=== PATIENT | female | born 1985 | race African-American/Black ===

== ENCOUNTER 2016-06-02 12:45 | Day surgery (SDC) | payer MEDICAID, OTHER ==
[~2016-06-02] VITALS: Ht 152.4 cm; Wt 52.0 kg
[2016-06-02] VITALS (8 sets, daily range): BP systolic 82–130; BP diastolic 53–67; PULSE 56–72; RESP 11–20; Ht 152.4 cm; Wt 52.0 kg
[~2016-06-02 12:45] MED LIST: CEFAZOLIN 2 GM/50 ML (PMX) 50 ML IVPB ONE; HYDR-3498 PO; SOD CHLORIDE 0.9% 1,000 ML IV SCH
[2016-06-02] MEDS ORDERED: CEFAZOLIN 2 GM/50 ML (PMX) 50 ML IVPB ONE (15:00)
[2016-06-02] MEDS ORDERED: SOD CHLORIDE 0.9% 1,000 ML IV SCH (15:00)
[2016-06-02] MEDS ORDERED: BUPIVACAINE 0.25% (MPF) 30 ML INJ ONE (15:01)
[2016-06-02] MEDS ORDERED: TRIAMCINOLONE ACET 40 MG/ML INJ ONE (15:25)
[2016-06-02] MEDS ORDERED: FENTAnyl 50 MCG/ML VIAL IV PRN (15:30)
[2016-06-02] MEDS ORDERED: ONDANSETRON 4 MG INJ IV PRN (15:30)
[2016-06-02] MEDS ORDERED: MEPERIDINE 25 MG INJ IV PRN (15:30)
[2016-06-02] MEDS ORDERED: morphine (1 MG/ML) 10ML SYRINGE IV PRN (15:30)
[2016-06-02] MEDS ORDERED: DIPHENHYDRAMINE 50 MG INJ IV PRN (15:30)
[2016-06-02] MEDS ORDERED: MIDAZOLAM 1 MG/ML 2 ML INJ ONE (15:36)
[2016-06-02] MEDS ORDERED: FENTAnyl 50 MCG/ML VIAL ONE (15:37)
[2016-06-02] MEDS ORDERED: LIDOCAINE 2% (SDV) 5 ML INJ ONE (16:15)
[2016-06-02] MEDS ORDERED: CEFAZOLIN 1 GM INJ ONE (16:15)
[2016-06-02] MEDS ORDERED: PROPOFOL 20 ML ONE (16:15)
[2016-06-02] MEDS ORDERED: HYDROCODONE/APAP (5/325) TAB PO ONE (16:30)
--- NOTE | 2016-06-02 16:51 | OPR ---
DATE OF OPERATION: 06/02/2016 INDICATION: This is a 31-year-old female with a nipple areolar mass. She requests surgical excisio n and reconstruction. Risks, alternatives, benefits, and personnel were discussed with the patient. The patient expressed understanding and consents to the operation. PREOPERATIVE DIAGNOSIS: Nipple areolar mass. POSTOPERATIVE DIAGNOSIS: Nipple areolar mass. OPERATION PERFORMED: 1. Excision of nipple areolar mass with 3 x 2 cm size incision and 3 x 2 cm size lesion. 2. Nipple areolar reconstruction, CPT code 29015. SURGEON: Renan Patel MD SPECIMEN: Left nipple areolar mass. COMPLICATIONS: None. ANESTHESIA: General. DESCRIPTION OF PROCEDURE: The patient was taken to the OR and prepped and draped in usual sterile f ashion. Surgical timeout was performed. IV antibiotics were given. Incision was made in the left upper quadrant of the right nipple and areolar with a 15 blade excising the mass. Due to the nipple areolar defect nipple areolar reconstruction was performed by first creating superior and inferior skin flaps and these were advanced with interrupted 3-0 Vicryl. The nipple mound was maintained and made protuberant with imbricated interrupted 3-0 Vicryls. The excess skin at the edge of the areol ar was also closed with multiple imbrications of interrupted 3-0 Vicryl. The skin was then also maximino sed with a running 4-0 Monocryl. Local anesthesia and Kenalog was injected due to her history of hi gh keloid formation. The surgical site was hemostatic. Dry dressings were applied. Dictated By: RENAN RAE/HARIS Conf#: [id number] DID#: [id number]
== END 2016-06-02 18:15 | disposition home or self-care (01) ==
LOC: SDS 12:45
PROVIDERS: ATTEND Surgery
DX: L91.0 Hypertrophic scar (principal); N63 Unspecified lump in breast
CPT/HCPCS: 19350; 84703; 88304; J0690; J2250; J3010; J3301